=== PATIENT | female | born 1950 | race Two or more races ===

== ENCOUNTER 2022-08-02 14:28 | Inpatient (IN) | payer OTHER ==
[~2022-08-02] VITALS: Ht 149.9 cm; Wt 78.0 kg
[2022-08-03] MEDS ORDERED: TOPROL XL25 M1 PO (08:36)
[2022-08-03] MEDS ORDERED: PRAVASTATIN SOD10 MG PO (08:37)
[2022-08-03] MEDS ORDERED: NORVASC2.5 MG PO (08:37)
[2022-08-03] MEDS ORDERED: LASIX20 MG PO (08:37)
[2022-08-03] MEDS ORDERED: COZAAR25 MG PO (08:38)
[2022-08-03] MEDS ORDERED: HORIZANT300 MG PO (08:38)
[2022-08-08] MEDS ORDERED: DOXEPIN HCL10 MG (07:56)
[2022-08-08] MEDS ORDERED: PRAVASTATIN SOD40 MG (07:56)
[2022-08-08] MEDS ORDERED: LOSARTAN POTAS100 MG (07:56)
[2022-08-08] MEDS ORDERED: XARELTO20 M1 (07:56)
[2022-08-08] MEDS ORDERED: METOPROLOL SUCC25 MG (07:56)
[2022-08-08] MEDS ORDERED: ALPRAZOLAM0.5 MG (07:56)
[2022-08-08] MEDS ORDERED: GABAPENTIN600 MG (07:56)
[2022-08-08] MEDS ORDERED: FUROSEMIDE40 MG (07:56)
[2022-08-08] MEDS ORDERED: AMLODIPINE BESYL5 MG (07:56)
[2022-08-11] MEDS ORDERED: CIPRO500 MG PO (08:10)
[2022-08-11] MEDS ORDERED: PERCOCET 5-3251 EACH PO (08:10)
[2022-08-11] MEDS ORDERED: ELIQUIS2.5 MG PO (08:10)
== END 2022-08-11 13:45 | DRG 470 ==
LOC: SURH 08-08 07:30 → SURG 08-08 07:45 → O/R 08-08 07:45 → SURG 08-08 09:46 → SURH 08-08 10:00 → SURG 08-11 13:45
PROVIDERS: ADMIT Orthopaedic Surgery; ATTEND Orthopaedic Surgery
PROC: 3E0F7SF Introduction of Other Gas into Respiratory Tract, Via Natural or Artificial Opening (ICD-10-PCS; 2022-08-08)
PROC: 0SRD0J9 Replacement of Left Knee Joint with Synthetic Substitute, Cemented, Open Approach (ICD-10-PCS; principal; 2022-08-08 10:00)
DX: M17.12 Unilateral primary osteoarthritis, left knee (principal); D62 Acute posthemorrhagic anemia; M22.12 Recurrent subluxation of patella, left knee; M81.8 Other osteoporosis without current pathological fracture; E66.9 Obesity, unspecified